=== PATIENT | female | born 2005 | race Caucasian/White ===

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

== ENCOUNTER → 2025-01-04 | Outpatient (CLI) | payer OTHER, SELFPAY ==
--- OUTSIDE RECORDS SUMMARY | 2025-01-04 11:24 | XMS RPT_ITS | CCD ---
Author Organization [facility] Care Team Providers Care Elevator Inspector Name Role Phone PHYSICIAN, NONE Primary Care Physician UnavailRichy Marquez MD Primary Care Provider Richy Sullivan MD Primary Care Provider [phone] RICHY SULLIVAN Primary Care Unavailable JENIFFER HALL Attending Unavailable Medications Current Medications Medication Drug Class(es) Dates Sig (Normalized) Sig (Original) Ethinyl Estradiol / Levonorgestrel (5 sources) Progestin, Estrogen, Progestin-containin g Intrauterine Device Start: 10-22-2024 take 1 tablet by mouth once daily L-Norgest and E Estradiol-E Estrad 0.15 mg-30 mcg (84)/10 mcg (7) Take 1 tablet by mouth once daily. 91 tablet 4 10/22/2024 Active Start: 10-13-2023 End: 10-22-2024 take 1 tablet by mouth once daily L-Norgest and E Estradiol-E Estrad 0.15 mg-30 mcg (84)/10 mcg (7) Take 1 tablet by mouth once daily. 91 tablet 4 10/13/2023 10/22/2024 Discontinued Start: 10-13-2023 take 1 tablet by zaid th once daily L-Norgest and E Estradiol-E Estrad 0.15 mg-30 mcg (84)/10 mcg (7) Take 1 tablet by mouth once daily. 91 tablet 4 10/13/2023 Active Start: 09-08-2023 End: 10-13-2023 take 1 tablet by mouth once daily L-Norgest and E Estradiol-E Estrad 0.15 mg-30 mcg (84)/10 mcg (7) Take 1 tablet by mouth once daily. 91 tablet 0 09/08/2023 10/13/2023 Discontinued Problems Problem Classification Problem Date Documented Date Episodic/Chronic Contraceptive and procreative management (3 sources) Oral contraception; Translations: [Encounter for surveillance of contraceptive pills] Onset: 10-22-2024 10-13-2023 Episodic Results Test Name Value Interpretation Reference Range Facility [facility] 12-26-2024 ANGEN Telephone (PEDSWS) OLIVER LEI ([id number]) 3 F Date Time Provider Department 12/26/24 RICHY SULLIVAN PEDSWS During your visit today, we recorded the following information about you: Risa Boyd 12/26/2024 8:35 AM Signed Mother called wanting to know if patient ever received testing for sickle cell anemia. This is required for college sports. PSS unable to locate testing in patient's chart. Please contact mother to advise. Molly Munoz RN 12/26/2024 8:50 AM Signed Left message to call the office PASTORA Max Sondra, RN 12/26/2024 12:52 PM Signed Spoke with mother, would like a sickle cell order placed for lab. Patient would like to come in Monday to get this drawn PASTORA Max Tracy, LPN 12/27/2024 3:38 PM Signed Mom was advised pt would need to be seen per Dr Sullivan as last visit was in 2020. Mom is going to check with pt and if an appt is desired they will call the office back. Allergies As of Date: 12/26/2024 (No Known Allergies) Date Reviewed: 10/22/2024 Reviewed by: Jeniffer Hall APRN.[facility] - Fully Assessed Reason for Visit: Patient Question [1703] Orders [841] Prescriptions as of 12/27/2024 - L-Norgest and E Estradiol-E Estrad 0.15 mg-30 mcg (84)/10 mcg (7) Take 1 tablet by mouth once daily. Problem List As Of Date: 12/26/2024 (None) Encounter Status:Closed by NANCY NATION on 12/27/24 Normal [facility] CNOVon 10-22-2024 CNOV Office Visit (OBGYWM ) OLIVER LEI ([id number]) 3 F Date Time Provider Department 10/22/24 3:00 PM JENIFFER HALL OBGYWM During your visit today, we recorded the following information about you: Blood pressure Weight Height Last Period 118/68 70.4 kg 1.652 m 08/25/24 Jeniffer Hall APRN.UNIT COORDINATOR 10/22/2024 3:17 PM Signed Oliver is a 19 year old who presents for an annual gynecologic exam without complaints. Presents: alone Menses: cycles every 91 days and 3-4 days of flow. Light flow Contraception: combined hormonal contraceptives HPV vaccine: Yes Last pap smear: never Sexually active: Yes Patient concerns for STD exposure: No. OB History Gravida0 Para0 Term0 Preterm0 AB0 Living0 SAB0 IAB0 Ectopic0 Multiple0 Live Births0 Circuit Manager History LMP: 08/25/2024 (Exact Date), Drug Induced Amenorrhea Age at Menarche: 11 Age at First : Age at Menopause: Circuit Manager History Comments: Sexual Activity: Yes; Male Contraception: Pill Menstrual Tracking History Flowsheet Row Office Visit from 10/22/2024 in OB/Gynecology Period Cycle (Days) 90 Period Duration (Days) 4 Menstrual Flow Moderate PAST MEDICAL HISTORY Diagnosis Date NEGATIVE HISTORY OF normal color vision / PAST SURGICAL HISTORY Procedure Laterality Date NONE FAMILY HISTORY Problem Relation Age of Onset No Known Problems Mother No Known Problems Father No Known Problems Sister No Known Problems Sister No Known Problems Sister No Known Problems Brother other (seizure disorder) Maternal Grandmother other (depression) Maternal Grandmother other (anxiety) Maternal Grandmother No Known Problems Maternal Grandfather SOCIAL HISTORY Social History Tobacco Use Smoking status: Never Smokeless tobacco: Never Vaping Use Vaping status: Never Used Substance Use Topics Alcohol use: No Drug use: No REVIEW OF SYSTEMS Abdomen: No bloating, early satiety, indigestion, or increased flatulence. No abdominal pain, nausea, vomiting, diarrhea, or constipation. Bladder: No dysuria, gross hematuria, urinary frequency, urinary urgency, or incontinence. Breast: No breast lumps, nipple d/c, overlying skin changes, redness or skin retraction. Allergies and current medication updated:Yes SENSITIVE EXAM: Sensitive exam not performed. EXAM: BP 118/68 Ht 5' 5.039" (1.65m) Wt 155 lb 3.2 oz (70.4kg) LMP 08/25/2024 BMI 25.80 kg/(m2). GENERAL: pleasant, in no apparent distress HEENT: Normocephalic, atraumatic, mucus membranes moist, and no lesions CHEST: Normal inspiratory effort NEURO: alert and oriented x3,exam grossly non-focal EXTREMITIES: normal ASSESSMENT/PLAN: 1) Health maintenance: Pap starting at the age of 21. Safe sex practices reviewed. Nutrition, exercise, and routine health maintenance exams reviewed. HPV vaccine completed series.. 2) Contraception: combined hormonal contraceptives. Contraceptive options reviewed and information provided. 3) STD screening: Declined STD check. 4) Follow up one year or sooner as needed. Jeniffer Hall APRN.ANGE Allergies As of Date: 10/22/2024 (No Known Allergies) Date Reviewed: 10/22/2024 Reviewed by: Jeniffer Hall APRN.UNIT COORDINATOR - Fully Assessed Reason for Visit: Well Woman [1463] Contraception [26] Primary Visit Diagnosis:Encounter for gynecological examination (general) (routine) without abnormal findings [Z01.419] Other Visit Diagnosis:Encounter for surveillance of contraceptive pills [Z30.41] Order(s):L-Norgest and E Estradiol-E Estrad 0.15 mg-30 mcg (84)/10 mcg (7)Take 1 tablet by mouth once daily.Disp: 91 tabletRfl: 4 Prescriptions as of 10/22/2024 - L-Norgest and E Estradiol-E Estrad 0.15 mg-30 mcg (84)/10 mcg (7) Take 1 tablet by mouth once daily. Problem List As Of Date: 10/22/2024 (None) Prescriptions ordered this encounter Disp Refills Start End L NORGEST/E ESTRADIOL-E ESTRAD 0.15 * 91 t* 4 10/22/2024 Route: ORAL Sig: Take 1 tablet by mouth once daily. Medications Discontinued During This Encounter Prescriptions - L-Norgest and E Estradiol-E Estrad 0.15 mg-30 mcg (84)/10 mcg (7) (Discontinued) Take 1 tablet by mouth once daily. Disposition: Return in 1 year (on 10/22/2025) for Annual Exam. Follow-up and Disposition History for Encounter Date Provider Department Center 10/22/2024 [id number] HALL [facility] Encounter Status:Closed by JENIFFER HALL on 10/22/24 [facility] [id number] 07-26-2021 Date of Onset [id number] Invalid Interpretation Code [facility] ([place]) Comment on above: Performed By: #### C OVD19 #### [place] [address] Employed in Healthcare No [facility] ([place]) Comment on above: Performed By: #### C OVD19 #### [place] [address] First Test No [facility] ([place]) Comment on above: Performed By: #### C OVD19 #### [place] [address] Hospitalized No [facility] ([place]) Comment on above: Performed By: #### C OVD19 #### [place] [address] [address] ICU No [facility] ([place]) Comment on above: Performed By: #### C OVD19 #### [place] [address] Not [facility] ([place]) Comment on above: Performed By: #### C OVD19 #### [place] [address] Resides in Congregate Care Setting No [facility] ([place]) Comment on above: Performed By: #### C OVD19 #### [address] [address] SARS-CoV-2 (COVID-19) RNA MEGAN+probe Ql (Unsp spec) Negative Normal Negative [facility] ([place]) Comment on above: Performed By: #### C OVD19 #### [address] [address] SARS-CoV-2 (COVID-19) RNA MEGAN+probe Ql (Unsp spec) Normal [facility] ([place]) Comment on above: Result Comment: Nega tive results do not preclude SARS-CoV-2 infection and should not be used as the sole basis for patient management decisions. Negative results must be combined with clinical observations, patient history, and epidemiological information. There is a risk of false negative values resulting from improperly collected, transported, or handled specimens. There is a risk of false negative values due to the presence of sequence variants in the pathogen targets of the assay, procedural errors, amplification inhibitors in specimens, or inadequate numbers of organisms for amplification. GINI SARS-CoV-2 Assay is a Real-Time reverse-transcriptase polymerase chain reaction (RT-PCR) based qualitative in vitro diagnostic test intended for the qualitative detection of nucleic acid from the SARS-CoV-2 in nasopharyngeal swab specimens collected from individuals suspected of COVID-19 by their healthcare provider. Testing is limited to laboratories certified under the Clinical Laboratory Improvement Amendments of 1988 (CLIA), 42 U.S.C. ?263a, to perform moderate and high complexity tests. COVID-19 Int Performed By: #### C OVD19 #### [place] [address] [address] Symptomatic as Defined by CDC No Normal [facility] ([place]) Comment on above: Performed By: #### C OVD19 #### [place] [address] [address] LABORATORYOrdered By: Ellen Guerrero on 07-26-2021 ADMITTED TO INTENSIVE CARE UNIT FOR CONDITION OF INTEREST:FIND:PT:^PAT IENT:ORD: No (07/26/21 3:25 PM) Invalid Interpretation Code AO Auto Urine SS EMPLOYED IN A HEALTHCARE SETTING:FIND:PT:^GRACY ENT:ORD: No (07/26/21 3:25 PM) Invalid Interpretation Code AO Auto Urine SS FIRST TEST FOR CONDITION OF INTEREST:FIND:PT:^PAT IENT:ORD: No (07/26/21 3:25 PM) Invalid Interpretation Code AO Auto Urine SS HAS SYMPTOMS RELATED TO CONDITION OF INTEREST:FIND:PT:^PAT IENT:ORD: No (07/26/21 3:25 PM) Invalid Interpretation Code AO Auto Urine SS Illness or injury onset date and time [id number] Invalid Interpretation Code AO Auto Urine SS Patient was hospitalized because of this condition No (07/26/21 3:25 PM) Invalid Interpretation Code AO Auto Urine SS status Not (07/26/21 3:25 PM) Invalid Interpretation Code AO Auto Urine SS RESIDES IN A CONGREGATE CARE SETTING:FIND:PT:^GRACY ENT:ORD: No (07/26/21 3:25 PM) Invalid Interpretation Code AO Auto Urine SS SARS-CoV-2 (COVID-19) RNA MEGAN+probe Ql (Resp) Negative (07/26/21 3:25 PM) Invalid Interpretation Code Negative AO Auto Urine SS SARS-CoV-2 (COVID-19) RNA MEGAN+probe Ql (Unsp spec) Negative results do not preclude SARS-CoV-2 infection and should not be used as the sole basis for patient management decisions. Negative results must be combined with clinical observations, patient history, and epidemiological information.There is a risk of false negative values resulting from improperly collected, transported, or handled specimens.There is a risk of false negative values due to the presence of sequence variants in the pathogen targets of the assay, procedural errors, amplification inhibitors in specimens, or inadequate numbers of organisms for amplification.GINI SARS-CoV-2 Assay is a Real-Time reverse-transcriptase polymerase chain reaction (RT-PCR) based qualitative in vitro diagnostic test intended for the qualitative detection of nucleic acid from the SARS-CoV-2 in nasopharyngeal swab specimens collected from individuals suspected of COVID-19 by their healthcare provider. Testing is limited to laboratories certified under the Clinical Laboratory Improvement Amendments of 1988 (CLIA), 42 U.S.C. 263a, to perform moderate and high complexity tests. Invalid Interpretation Code AO Auto Urine SS Urgent Care Visit Reporton 0 01-13-2020 Urgent Care Visit Report [address] [place] [id number] OFFICE VISIT Date of Service: 01/13/20 MR#: [id number] Acct: [id number] Name: OLIVER LEI Rep #: [id number] : 2005 Provider: BERONICA Gentile Age/Sex: 14/F Location: [facility] Status: Signed Intake Intake Visit Reasons: SPORTS PHYSICAL HPI HPI Details: OLIVER LEI, is a 14 F who presents to the office today for sports physical. Please see corresponding scanned documents with today's date. Office Procedures Physical Exam Coding PE Coding Sports/School Physical: Yes Assessment Plan Problems 1. Routine sports physical exam Z02.5 Status Acute Coding Level of Care Code No Charge Diagnoses Routine sports physical exam Z02.5 Additional Codes PE Coding - Sports/School Physical: Yes (37323) 01/13/20 1523 Date Ramón Johnson Signature: Date (if applicable) CC: Normal [facility] Ankle min 3 Viewson 06-17-19 20 Ankle min 3 Views [facility] [address] [place] [address] Ankle min 3 Views MR#: [id number] Acct: [id number] Name: OLIVER LEI Rep #: [id number] : 2005 F 13 From: Hilario Newby MD PCP: Richy Sullivan MD Status: REG CLI Study: Ankle min 3 Views Date of Exam: 06/17/19 Exam# [id number] Ordering Dr: Morgan Armendariz MD STUDY: X-RAY - LEFT ANKLE REASON FOR EXAM: Pain mostly at the lateral malleolus and lateral left foot with swelling and discoloration after rolling the ankle/foot last Monday. TECHNIQUE: 3 view(s) of the ankle. COMPARISON: None. FINDINGS: Normal visualized distal tibia and fibula. Normal medial and lateral malleoli. Normal tibiotalar articulation and ankle mortise. Normal visualized talus and calcaneus. The visualized subtalar, talonavicular, calcaneocuboid and tarsal articulations are normal. There is soft tissue swelling overlying the lateral malleolus. RAD/Ankle min 3 Views IMPRESSION: Soft tissue swelling. No demonstrated fracture. Electronically Signed: Hilario Newby MD at 13:59 EST Tel , Service support , CC: Ari Armendariz MD; Richy Sullivan MD Entry Level Project Engineer: Signed Normal [facility] Foot min 3 Viewson 0 Foot min 3 Views [facility] Services [address] [place] [address] Foot min 3 Views MR#: [id number] Acct: [id number] Name: OLIVER LEI Rep #: [id number] : 2005 F 13 From: Hilario Newby MD PCP: Richy Sullvian MD Status: REG CLI Study: Foot min 3 Views Date of Exam: 06/17/19 Exam# [id number] Ordering Dr: Morgan Armendariz MD STUDY: X-RAY - LEFT FOOT CLINICAL: Pain mostly at the lateral malleolus and lateral left foot with swelling and discoloration after rolling the ankle/foot last Monday. TECHNIQUE: 3 view(s) of the foot. COMPARISON: None. FINDINGS: Normal talus, calcaneus, and tarsal bones. Normal visualized subtalar, talonavicular, calcaneocuboid, tarsal and tarsometatarsal articulations. Normal metatarsi. Normal metatarsophalangeal joint of the great toe. Normal tibial and fibular sesamoid bones. Normal interphalangeal joint of the great toe. Normal phalanges of the great toe. Normal second through fifth metatarsophalangeal joints. Normal interphalangeal joints and phalanges of the lesser toes. There is soft tissue swelling of the lateral left foot. RAD/Foot min 3 Views IMPRESSION: Soft tissue swelling. No demonstrated fracture. Electronically Signed: Hilario Newby MD at 13:58 EST Tel , Service support , CC: Ari Armendariz MD; Richy Sullivan MD Entry Level Project Engineer: Signed Normal [facility] Vital Signs Date Time Vital Sign Value Performing Clinician Sejali marty 10-22-2024 15:01-0400 Body height 165.2 cm Jeniffer [place] FILLING STATION LABORER.UNIT COORDINATOR Work Phone: [facility] 10-22-2024 15:01-0400 Body mass index (BMI) [Ratio] 25.8 kg/m2 Jeniffer [place] FILLING STATION LABORER.UNIT COORDINATOR Work Phone: [facility] 10-22-2024 15:01-0400 Body weight 70.4 kg Jeniffer [place] FILLING STATION LABORER.UNIT COORDINATOR Work Phone: [facility] 10-22-2024 15:01-0400 Diastolic blood pressure 68 mm[Hg] Jeniffer Isabel FILLING STATION LABORER.UNIT COORDINATOR Work Phone: [facility] 10-22-2024 15:01-0400 Systolic blood pressure 118 mm[Hg] Jeniffer [place] FILLING STATION LABORER.UNIT COORDINATOR Work Phone: [facility] 10-13-2023 10:52-0400 Body height 166.4 cm Jeniffer [place] FILLING STATION LABORER.UNIT COORDINATOR Work Phone: [facility] 10-13-2023 10:52-0400 Body mass index (BMI) [Ratio] 27.53 kg/m2 Jeniffer [place] FILLING STATION LABORER.UNIT COORDINATOR Work Phone: [facility] 10-13-2023 10:52-0400 Body weight 76.2 kg Jeniffer [place] FILLING STATION LABORER.UNIT COORDINATOR Work Phone: [facility] 10-13-2023 10:52-0400 Diastolic blood pressure 58 mm[Hg] Jeniffer Isabel FILLING STATION LABORER.UNIT COORDINATOR Work Phone: [facility] 10-13-2023 10:52-0400 Systolic blood pressure 110 mm[Hg] Jeniffer [place] FILLING STATION LABORER.UNIT COORDINATOR Work Phone: [facility] Encounters Encounter Date Encounter Type Care Provider Facility Start: 12-26-2024 End: 12-27-2024 Telephone encounter Richy Sullivan MD Work Phone: [facility] Comment on above: Patient Question; Or ders Start: 10-22-2024 End: 10-22-2024 Patient encounter procedure Jeniffer [place] FILLING STATION LABORER.UNIT COORDINATOR Work Phone: OB/Gynecology Comment on above: Encounter for gyneco logical examination (general) (routine) without abnormal findings (Primary Dx); Encounter for surveillance of contraceptive pills Start: 10-22-2024 End: 10-22-2024 Patient encounter status Jeniffer [place] FILLING STATION LABORER.UNIT COORDINATOR Work Phone: [facility] Work Phone: Start: 10-22-2024 End: 10-22-2024 ambulatory RICHY SULLIVAN Facility:[facility] Start: 10-22-2024 Encounter for gynecological examination (general) (routine) without abnormal findings JENIFFER ISABEL [facility] Start: 10-13-2023 End: 10-13-2023 Patient encounter procedure Jeniffer Isabel FILLING STATION LABORER.UNIT COORDINATOR Work Phone: OB/Gynecology Comment on above: Encounter for gyneco logical examination (general) (routine) without abnormal findings (Primary Dx); Encounter for surveillance of contraceptive pills Start: 10-13-2023 End: 10-13-2023 Patient encounter status Jeniffer [place] FILLING STATION LABORER.UNIT COORDINATOR Work Phone: [facility] Start: 07-26-2021 End: 07-26-2021 Patient encounter procedure OYLA MOON DO [facility] Plan of Treatment Date Care Activity Detail Author Start: 10-25-2025 Urine microalbumin profile DTaP,Tdap,Td Vaccine (7 - Td or Tdap) [facility] Start: 10-23-2025 End: 10-23-2025 Patient encounter procedure 10/23/2025 3:00 PM EDT Office Visit OB/Gynecology [address] [place] [address] Jeniffer Hall, FILLING STATION LABORER.UNIT COORDINATOR [address] [place] [address] Annual OB/Gynecology Comment on above: Annual Start: 02-10-2025 Influenza vaccination [facility] Start: 10-15-2024 End: 10-15-2024 Patient encounter procedure 10/15/2024 11:00 AM EDT Office Visit OB/Gynecology [address] [place] [address] Jeniffer Hall, FILLING STATION LABORER.UNIT COORDINATOR [address] [place] [address] annual OB/Gynecology Comment on above: annual Start: 02-11-2024 Covid-19 Vaccine ( season) Covid-19 Vaccine ( season) [facility] Start: 02-11-2024 Influenza vaccination Influenz a Vaccine (Season Ended) [facility] Start: 06-12-2023 Behavioral Health Screening Behavioral Health Screening [facility] Start: 02-10-2023 Covid-19 Vaccine ( season) Covid-19 Vaccine ( season) [facility] Start: 2022 Anxiety Screening Anxiety Screening [facility] Start: 2022 Depression Screening Depression Scre ening [facility] Start: 2022 GC (Gonorrhea) Scree nida (18-) GC (Gonorrhea) Screening (18-) [facility] Start: 2022 Hepatitis C screening Hepatitis C Sc keely [facility] Start: 2022 HIV screening HIV Screening [facility] Start: 2022 Screening for Chlamy shahrzad trachomatis Chlamydia Screening (18-24) [facility] Start: 2020 Meningococcal B Vacc ine (1 of 2 - Standard) Meningococcal B Vaccine (1 of 2 - Standard) [facility] Start: 2020 Meningococcal B Vacc ine: Consider Based On Risk (1 of 2 - Patient Seeks Protection) Meningococcal B Vaccine: Consider Based On Risk (1 of 2 - Patient Seeks Protection) [facility] Start: 2018 Peds To Adult Transi tion Annual Assessment Peds To Adult Transition Annual Assessment [facility] Immunizations Immunization Date Immunization Notes Care Provider Fa yaw 02-01-2021 meningococcal polysaccharide (groups A, C, Y and W-135) diphtheria toxoid conjugate vaccine (MCV4P) Jeniffer [place] FILLING STATION LABORER.UNIT COORDINATOR Work Phone: [facility] 10-21-2016 Human Papillomavirus 9-valent vaccine Jeniffer Isabel FILLING STATION LABORER.UNIT COORDINATOR Work Phone: [facility] 10-26-2015 Human Papillomavirus 9-valent vaccine Jeniffer [place] FILLING STATION LABORER.UNIT COORDINATOR Work Phone: [facility] 10-26-2015 meningococcal polysaccharide (groups A, C, Y and W-135) diphtheria toxoid conjugate vaccine (MCV4P) Jeniffer [place] FILLING STATION LABORER.UNIT COORDINATOR Work Phone: [facility] 10-26-2015 tetanus toxoid, redu ayan diphtheria toxoid, and acellular pertussis vaccine, adsorbed Jeniffer [place] FILLING STATION LABORER.UNIT COORDINATOR Work Phone: [facility] 05-29-2014 influenza, live, intranasal, quadrivalent Jeniffer [place] FILLING STATION LABORER.UNIT COORDINATOR Work Phone: [facility] 05-29-2014 influenza virus vacc ine, unspecified formulation Jeniffer [place] FILLING STATION LABORER.UNIT COORDINATOR Work Phone: [facility] 03-23-2013 influenza virus vacc ine, live, attenuated, for intranasal use Jeniffer Isabel FILLING STATION LABORER.UNIT COORDINATOR Work Phone: [facility] 04-23-2011 influenza virus vacc ine, live, attenuated, for intranasal use Jeniffer [place] FILLING STATION LABORER.UNIT COORDINATOR Work Phone: [facility] 04-21-2010 influenza virus vacc ine, live, attenuated, for intranasal use Jeniffer [place] FILLING STATION LABORER.UNIT COORDINATOR Work Phone: [facility] Work Phone: 10-12-2009 diphtheria, tetanus toxoids and acellular pertussis vaccine Jeniffer [place] FILLING STATION LABORER.UNIT COORDINATOR Work Phone: [facility] 10-12-2009 measles, mumps and rubella virus vaccine Jeniffer [place] FILLING STATION LABORER.UNIT COORDINATOR Work Phone: [facility] 10-12-2009 poliovirus vaccine, inactivated Jeniffer Isabel FILLING STATION LABORER.UNIT COORDINATOR Work Phone: [facility] 10-12-2009 varicella virus vaccine John e [place] FILLING STATION LABORER.UNIT COORDINATOR Work Phone: [facility] 03-27-2009 influenza virus vacc ine, live, attenuated, for intranasal use Jeniffer [place] FILLING STATION LABORER.UNIT COORDINATOR Work Phone: [facility] Work Phone: 09-29-2008 hepatitis A vaccine, unspecified formulation Jeniffer [place] FILLING STATION LABORER.UNIT COORDINATOR Work Phone: [facility] 04-10-2007 influenza virus vacc ine, unspecified formulation Jeniffer Isabel FILLING STATION LABORER.UNIT COORDINATOR Work Phone: [facility] 04-26-2006 influenza virus vacc ine, unspecified formulation Jeniffer [place] FILLING STATION LABORER.UNIT COORDINATOR Work Phone: [facility] 01-30-2006 diphtheria, tetanus toxoids and acellular pertussis vaccine Jeniffer [place] FILLING STATION LABORER.UNIT COORDINATOR Work Phone: [facility] 01-30-2006 haemophilus influenz ae type b vaccine, HbOC conjugate Jeniffer Isabel FILLING STATION LABORER.UNIT COORDINATOR Work Phone: [facility] 09-14-2005 measles, mumps and rubella virus vaccine Jeniffer [place] FILLING STATION LABORER.UNIT COORDINATOR Work Phone: [facility] 09-14-2005 pneumococcal conjuga te vaccine, 7 valent Jeniffer Isabel FILLING STATION LABORER.UNIT COORDINATOR Work Phone: [facility] 09-14-2005 varicella virus vaccine John e [place] FILLING STATION LABORER.UNIT COORDINATOR Work Phone: [facility] 06-03-2005 influenza virus vacc ine, unspecified formulation Jeniffer Isabel FILLING STATION LABORER.UNIT COORDINATOR Work Phone: [facility] Work Phone: 04-22-2005 influenza virus vacc ine, unspecified formulation Jeniffer [place] FILLING STATION LABORER.UNIT COORDINATOR Work Phone: [facility] 02-23-2005 DTaP-hepatitis B and poliovirus vaccine Jeniffer Isabel FILLING STATION LABORER.UNIT COORDINATOR Work Phone: [facility] 02-23-2005 haemophilus influenz ae type b vaccine, HbOC conjugate Jenifefr Isabel FILLING STATION LABORER.UNIT COORDINATOR Work Phone: [facility] 02-23-2005 pneumococcal conjuga te vaccine, 7 valent Jeniffer Isabel FILLING STATION LABORER.UNIT COORDINATOR Work Phone: [facility] 2004 DTaP-hepatitis B and poliovirus vaccine Jeniffer Isabel FILLING STATION LABORER.UNIT COORDINATOR Work Phone: [facility] 2004 haemophilus influenz ae type b vaccine, HbOC conjugate Jeniffer [place] FILLING STATION LABORER.UNIT COORDINATOR Work Phone: [facility] 2004 pneumococcal conjuga te vaccine, 7 valent Jeniffer Isabel FILLING STATION LABORER.UNIT COORDINATOR Work Phone: [facility] 2004 DTaP-hepatitis B and poliovirus vaccine Jeniffer [place] FILLING STATION LABORER.UNIT COORDINATOR Work Phone: [facility] Work Phone: 2004 haemophilus influenz ae type b vaccine, HbOC conjugate Jeniffer [place] FILLING STATION LABORER.UNIT COORDINATOR Work Phone: [facility] 2004 pneumococcal conjuga te vaccine, 7 valent Jeniffer Isabel FILLING STATION LABORER.UNIT COORDINATOR Work Phone: [facility] 2004 hepatitis B vaccine, pediatric or pediatric/adolescent dosage Jeniffer [place]ro[place]alf FILLING STATION LABORER.UNIT COORDINATOR Work Phone: [facility] Payers Date Payer Category Payer Private Health Insurance [id number] 2020 Private Health Insurance [id number] Social History Date Type Detail Facility Never smoker [facility] Sex Assigned At Female [facility] Start: 08-22-2022 Tobacco smoking stat us KYIS Never smoked tobacco [facility] Start: 08-22-2022 Tobacco use and exposure Smoke less tobacco non-user [facility] Start: 10-13-2023 End: 10-22-2024 Alcohol intake Current non-drinker of alcohol (finding) [facility] Start: 2019 End: 10-13-2023 [facility] of [facility] Start: 2019 End: 10-13-2023 Social connection and isolation panel [facility] Do you belong to any clubs or organizations such as amish groups, unions, fraternal or athletic groups, or school groups? Yes [facility] Marital Status Not on file [facility] joe Do you feel stress - tense, restless, nervous, or anxious, or unable to sleep at night because your mind is troubled all the time - these days [OSQ] Only a little [facility] (I/We) worried whesamantha er (my/our) food would run out before (I/we) got money to buy more. Never true [facility] Start: 2004 Sex Assigned At Not on file [facility] Functional Status Date Assessment Result Facility 10-17-2014 Are you deaf, or do you have serious difficulty hearing No 10/17/2014 9:09 AM Radha Alexander MA No [facility] 10-17-2014 Are you blind, or do you have serious difficulty seeing, even when wearing glasses No 10/17/2014 9:09 AM EDT Radha Carlisle MA No [facility] 10-17-2014 Do you have serious difficulty walking or climbing stairs No 10/17/2014 9:09 AM EDT Radha Carlisle MA No [facility] 10-17-2014 Do you have difficul ty dressing or bathing No 10/17/2014 9:09 AM EDT Radha Carlisle MA No [facility] Mental Status Date Assessment Result Facility 10-17-2014 Because of a physica l, mental, or emotional condition, do you have serious difficulty concentrating, remembering, or making decisions No 10/17/2014 9:09 AM EDT Radha Carlisle MA No [facility] Clinical Notes 10-13-2023 to 12-27-2024 Telephone Encounter - Nancy Nation LPN - 12/27/2024 3:37 PM EDTTelephone Encounter - Molly Munoz RN - 12/26/2024 12:51 PM EDTTelephone Encounter - Molly Munoz RN - 12/26/2024 8:50 AM EDT Note Date & Type Note Facility 12-27-2024 Miscellaneous Notes Formattin g of this note might be different from the original. Mom was advised pt would need to be seen per Dr Sullivan as last visit was in 2020. Mom is going to check with pt and if an appt is desired they will call the office back. Spoke with mother, would like a sickle cell order placed for lab. Patient would like to come in Monday to get this drawn Molly Munoz RN Left message to call the office Molly Munoz RN Mother called wanting to know if patient ever received testing for sickle cell anemia. This is required for college sports. PSS unable to locate testing in patient's chart. Please contact mother to advise. documented in this encounter [facility] 12-27-2024 Telephone encount er Note Mom was advised pt would need to be seen per Dr Sullivan as last visit was in 2020. Mom is going to check with pt and if an appt is desired they will call the office back. [facility] 12-26-2024 Telephone encount er Note Spoke with mother, would like a sickle cell order placed for lab. Patient would like to come in Monday to get this drawn Molly Munoz RN [facility] 12-26-2024 Telephone encount er Note Left message to call the office Molly Munoz RN [facility] 12-26-2024 Telephone encount er Note Mother called wanting to know if patient ever received testing for sickle cell anemia. This is required for college sports. PSS unable to locate testing in patient's chart. Please contact mother to advise. [facility] 10-22-2024 Note HNO ID: [id number] Author: JENIFFER HALL APRN.UNIT COORDINATOR Service: ? Author Type: Nurse Practitioner Type: Progress Notes Filed: 10/22/2024 15:17 Note Text: Oliver is a 19 year old who presents for an annual gynecologic exam without complaints. Presents: alone Menses: cycles every 91 days and 3-4 days of flow. Light flow Contraception: combined hormonal contraceptives HPV vaccine: Yes Last pap smear: never Sexually active: Yes Patient concerns for STD exposure: No. OB History Gravida0 Para0 Term0 Preterm0 AB0 Living0 SAB0 IAB0 Ectopic0 Multiple0 Live Births0 Circuit Manager History LMP: 08/25/2024 (Exact Date), Drug Induced Amenorrhea Age at Menarche: 11 Age at First : Age at Menopause: Circuit Manager History Comments: Sexual Activity: Yes; Male Contraception: Pill Menstrual Tracking History Flowsheet Row Office Visit from 10/22/2024 in OB/Gynecology Period Cycle (Days) 90 Period Duration (Days) 4 Menstrual Flow Moderate PAST MEDICAL HISTORY Diagnosis Date NEGATIVE HISTORY OF normal color vision 5/10 PAST SURGICAL HISTORY Procedure Laterality Date NONE FAMILY HISTORY Problem Relation Age of Onset No Known Problems Mother No Known Problems Father No Known Problems Sister No Known Problems Sister No Known Problems Sister No Known Problems Brother other (seizure disorder) Maternal Grandmother other (depression) Maternal Grandmother other (anxiety) Maternal Grandmother No Known Problems Maternal Grandfather SOCIAL HISTORY Social History Tobacco Use Smoking status: Never Smokeless tobacco: Never Vaping Use Vaping status: Never Used Substance Use Topics Alcohol use: No Drug use: No REVIEW OF SYSTEMS Abdomen: No bloating, early satiety, indigestion, or increased flatulence. No abdominal pain, nausea, vomiting, diarrhea, or constipation. Bladder: No dysuria, gross hematuria, urinary frequency, urinary urgency, or incontinence. Breast: No breast lumps, nipple d/c, overlying skin changes, redness or skin retraction. Allergies and current medication updated:Yes SENSITIVE EXAM: Sensitive exam not performed. EXAM: BP 118/68 Ht 5' 5.039" (1.65m) Wt 155 lb 3.2 oz (70.4kg) LMP 08/25/2024 BMI 25.80 kg/(m2). GENERAL: pleasant, in no apparent distress HEENT: Normocephalic, atraumatic, mucus membranes moist, and no lesions CHEST: Normal inspiratory effort NEURO: alert and oriented x3,exam grossly non-focal EXTREMITIES: normal ASSESSMENT/PLAN: 1) Health maintenance: Pap starting at the age of 21. Safe sex practices reviewed. Nutrition, exercise, and routine health maintenance exams reviewed. HPV vaccine completed series.. 2) Contraception: combined hormonal contraceptives. Contraceptive options reviewed and information provided. 3) STD screening: Declined STD check. 4) Follow up one year or sooner as needed. Jeniffer Hall APRN.[facility] 10-22-2024 History of Presen t illness Narrative Oliver is a 19 year old who presents for an annual gynecologic exam without complaints. Presents: alone Menses: cycles every 91 days and 3-4 days of flow. Light flow Contraception: combined hormonal contraceptives HPV vaccine: Yes Last pap smear: never Sexually active: Yes Patient concerns for STD exposure: No. OB History Gravida0 Para0 Term0 Preterm0 AB0 Living0 SAB0 IAB0 Ectopic0 Multiple0 Live Births0 Circuit Manager History LMP: 08/25/2024 (Exact Date), Drug Induced Amenorrhea Age at Menarche: 11 Age at First : Age at Menopause: Circuit Manager History Comments: Sexual Activity: Yes; Male Contraception: Pill Menstrual Tracking History Flowsheet Row Office Visit from 10/22/2024 in OB/Gynecology Period Cycle (Days) 90 Period Duration (Days) 4 Menstrual Flow Moderate PAST MEDICAL HISTORY Diagnosis Date NEGATIVE HISTORY OF normal color vision / PAST SURGICAL HISTORY Procedure Laterality Date NONE FAMILY HISTORY Problem Relation Age of Onset No Known Problems Mother No Known Problems Father No Known Problems Sister No Known Problems Sister No Known Problems Sister No Known Problems Brother other (seizure disorder) Maternal Grandmother other (depression) Maternal Grandmother other (anxiety) Maternal Grandmother No Known Problems Maternal Grandfather SOCIAL HISTORY Social History Tobacco Use Smoking status: Never Smokeless tobacco: Never Vaping Use Vaping status: Never Used Substance Use Topics Alcohol use: No Drug use: No REVIEW OF SYSTEMS Abdomen: No bloating, early satiety, indigestion, or increased flatulence. No abdominal pain, nausea, vomiting, diarrhea, or constipation. Bladder: No dysuria, gross hematuria, urinary frequency, urinary urgency, or incontinence. Breast: No breast lumps, nipple d/c, overlying skin changes, redness or skin retraction. Allergies and current medication updated:Yes SENSITIVE EXAM: Sensitive exam not performed. EXAM: BP 118/68 Ht 5' 5.039" (1.65m) Wt 155 lb 3.2 oz (70.4kg) LMP 08/25/2024 BMI 25.80 kg/(m^2). GENERAL: pleasant, in no apparent distress HEENT: Normocephalic, atraumatic, mucus membranes moist, and no lesions CHEST: Normal inspiratory effort NEURO: alert and oriented x3,exam grossly non-focal EXTREMITIES: normal ASSESSMENT/PLAN: 1) Health maintenance: Pap starting at the age of 21. Safe sex practices reviewed. Nutrition, exercise, and routine health maintenance exams reviewed. HPV vaccine completed series.. 2) Contraception: combined hormonal contraceptives. Contraceptive options reviewed and information provided. 3) STD screening: Declined STD check. 4) Follow up one year or sooner as needed. Jeniffer Hall APRN.ANGE documented in this encounter [facility] 10-13-2023 History of Presen t illness Narrative Oliver is a 18 year old who presents for an annual gynecologic exam without complaints. Presents: alone Menses: cycles every 21-27 days and 3-5 days of flow. Light flow Contraception: combined hormonal contraceptives HPV vaccine: Yes Last pap smear: never Sexually active: Yes Patient concerns for STD exposure: No. OB History T0 L0 SAB0 IAB0 Ectopic0 Multiple0 Live Births0 Circuit Manager History LMP: 05/30/2022, Drug Induced Amenorrhea Age at Menarche: Age at First : Age at Menopause: Circuit Manager History Comments: Sexual Activity: Yes; Male Contraception: Pill PAST MEDICAL HISTORY Diagnosis Date NEGATIVE HISTORY OF normal color vision 5/10 PAST SURGICAL HISTORY Procedure Laterality Date NONE FAMILY HISTORY Problem Relation Age of Onset No Known Problems Mother No Known Problems Father No Known Problems Sister No Known Problems Sister No Known Problems Sister No Known Problems Brother other (seizure disorder) Maternal Grandmother other (depression) Maternal Grandmother other (anxiety) Maternal Grandmother No Known Problems Maternal Grandfather SOCIAL HISTORY Social History Tobacco Use Smoking status: Never Smokeless tobacco: Never Vaping Use Vaping Use: Never used Substance Use Topics Alcohol use: No Drug use: No REVIEW OF SYSTEMS Abdomen: No bloating, early satiety, indigestion, or increased flatulence. No abdominal pain, nausea, vomiting, diarrhea, or constipation. Bladder: No dysuria, gross hematuria, urinary frequency, urinary urgency, or incontinence. Breast: No breast lumps, nipple d/c, overlying skin changes, redness or skin retraction. Allergies and current medication updated:Yes EXAM: BP 110/58 Ht 5' 5.5" (1.66m) Wt 168 lb (76.2kg) LMP 05/30/2022 BMI 27.52 kg/(m^2). GENERAL: pleasant, in no apparent distress HEENT: Normocephalic, atraumatic, mucus membranes moist, and no lesions CHEST: Normal inspiratory effort NEURO: alert and oriented x3,exam grossly non-focal EXTREMITIES: normal ASSESSMENT/PLAN: 1) Health maintenance: Pap starting at the age of 21. Safe sex practices reviewed. Nutrition, exercise, and routine health maintenance exams reviewed. HPV vaccine completed series.. 2) Contraception: combined hormonal contraceptives. Contraceptive options reviewed and information provided. 3) STD screening: Declined STD check. 4) Follow up one year or sooner as needed. Jeniffer Hall APRN.ANGE documented in this encounter [facility] Evaluation + Plan note No data available for this section [facility] Evaluation note Diagnosis Encounter for gynecological examination (general) (routine) without abnormal findings- Primary Encounter for surveillance of contraceptive pills Surveillance of previously prescribed contraceptive pill [facility] Diagnosis Encounter for gynecological examination (general) (routine) without abnormal findings- Primary Encounter for surveillance of contraceptive pills Surveillance of previously prescribed contraceptive pill documented [facility] encounter [facility] Discharge instructions No data available for this section [facility] Summary Purpose Family History No Family History Records FoundNo Family History Records FoundNo Family History Records Found Advance Directives No Advanced Directives Records FoundNo Advanced Directives Records FoundNo Advanced Directives Records Found Additional Source Comments INFORMATION SOURCE (unrecogn ized section and content) DATE CREATED AUTHOR 01/14/2020 [facility] DATE CREATED AUTHOR AUTHOR'S ORGANIZ ATION 08/07/2021 [facility] ([place]) DATE CREATED AUTHOR AUTHOR'S ORGANIZ ATION 12/31/2024 [facility] Source Comments (unrecognize d section and content) In the event this informatio n is protected by the Federal Confidentiality of Alcohol and Drug Abuse Patient Records regulations: The Federal rules restrict any use of the information to criminally investigate or prosecute any alcohol or drug abuse patient.[facility] the event this information is protected by the Federal Confidentiality of Alcohol and Drug Abuse Patient Records regulations: The Federal rules restrict any use of the information to criminally investigate or prosecute any alcohol or drug abuse patient.[facility] the event this information is protected by the Federal Confidentiality of Alcohol and Drug Abuse Patient Records regulations: The Federal rules restrict any use of the information to criminally investigate or prosecute any alcohol or drug abuse patient.[facility] Reason for Visit (unrecogniz ed section and content) Reason Comments Yearly Exam Reason Comments Well Woman Contraception Reason Comments Patient Question Orders Care Teams (unrecognized sec tion and content) Elevator Inspector Relationship Specialty Start Date End Date Richy Sullivan MD [address] [place] [address] PCP - General 04 Elevator Inspector Relationship Specialty Start Date End Date Richy Sullivan MD [address] [place] [address] PCP - General 04 FOR RECORDS PERTAINING TO PATIENTS WHO ARE OR HAVE BEEN ENROLLED IN A CHEMICAL DEPENDENCY/SUBSTANCEABUSE PROGRAM, SOME INFORMATION MAY BE OMITTED. This clinical summary was aggregated from multiple sources. Caution should be exercised in using it in the provision of clinical care. This summary normalizes information from multiple sources, and as a consequence, information in this document may materially change the coding, format and clinical context of patient data. In addition, data may be omitted in some cases. CLINICAL DECISIONS SHOULD BE BASED ON THE PRIMARY CLINICAL RECORDS. [facility] [employer] [facility]. provides no warranty or guarantee of the accuracy or completeness of information in this document.
[2025-01-07 14:08] LABS: Sickle Hgb Solubility Negative (Negative)
== END | disposition home or self-care (01) ==
LOC: LAB 11:22
PROVIDERS: PCP Internal Medicine; Referring Provider Internal Medicine; Visit Provider Internal Medicine
DX: Z13.0 Encounter for screening for diseases of the blood and blood-forming organs and certain disorders involving the immune mechanism (principal)
CPT/HCPCS: 36415; 85660